=== PATIENT | female | born 1985 | race Two or more races ===

== ENCOUNTER → 2023-12-25 | Outpatient (CLI) | payer BC, SELFPAY ==
--- NOTE | 2023-12-25 16:40 | XR_ITS ---
Examination: Foot, right, 3 views Technique: AP, oblique, lateral views foot, 3 views Date and time of exam: December 25, 2023 1740 hours INDICATIONS: Right foot pain beginning 3 days ago FINDINGS: Moderate osteopenia Mild to moderate narrowing first metatarsophalangeal joint Mild narrowing first tarsometatarsal joint No fracture No cortical bone destruction 4 mm plantar 5 mm posterior bony calcaneal spurs IMPRESSION: Mild to moderate osteoarthritis first metatarsophalangeal joint Mild osteoarthritis first tarsometatarsal joint Plantar posterior bony calcaneal spurs
[2023-12-25 18:48] LABS: RA Screen Negative (Negative)
[2023-12-31 06:47] LABS: ANA Screen, IFA NEGATIVE (NEGATIVE)
== END | disposition home or self-care (01) ==
LOC: CDIM 16:26 → COPL 17:06
PROVIDERS: Referring Provider Registered Nurse; Visit Provider Radiology Diagnostic Radiology
DX: M19.071 Primary osteoarthritis, right ankle and foot (principal); M77.31 Calcaneal spur, right foot; M79.671 Pain in right foot
CPT/HCPCS: 36415; 73630; 84550; 86038; 86430

== ENCOUNTER → 2024-02-08 | Outpatient (CLI) | payer BC, SELFPAY | END | disposition home or self-care (01) | LOC: CDIM 13:23 | PROVIDERS: PCP Family Medicine; Referring Provider Obstetrics & Gynecology Obstetrics; Visit Provider Obstetrics & Gynecology Obstetrics | DX: Z53.8 Procedure and treatment not carried out for other reasons (principal) ==

== ENCOUNTER → 2024-04-14 | Outpatient (CLI) | payer OTHER, SELFPAY ==
[2024-04-14 11:56] LABS: Beta HCG,Quantitative < 1 mIU/mL (<5.0)
== END | disposition home or self-care (01) ==
PROVIDERS: PCP Registered Nurse; Referring Provider Obstetrics & Gynecology Obstetrics; Visit Provider Obstetrics & Gynecology Obstetrics
DX: O02.81 Inappropriate change in quantitative human chorionic gonadotropin (hCG) in early pregnancy (principal)
CPT/HCPCS: 36415; 84702

== ENCOUNTER → 2024-04-23 | Outpatient (CLI) | payer BC, SELFPAY ==
--- NOTE | 2024-04-23 07:04 | XR_ITS ---
Examination: Transvaginal ultrasound of the pelvis, complete Technique: Transvaginal sonographic images pelvis performed using poe scale imaging Exam date and time: April 23, 2024 0717 hrs. Indications: Patient voided through IVF. Findings: Uterus 7.5 x 4.2 x 4.3 cm Endometrial stripe 0.4 cm Multiple small calcifications throughout the uterus and endometrium, the largest 4 mm Right ovary 2.4 x 1.7 x 2.1 cm arterial flow, 10 follicles, the largest 6 mm,, 5 mm, 5 mm, 6 mm, 5 mm, 5 mm, 5 mm, 3 mm, 3 mm Left ovary 2.1 x 1.9 x 1.8 cm arterial flow, 13 follicles, the largest 9 mm, 5 mm, 4 mm, 3 mm, 5 mm, 4 mm, 3 mm, 4 mm, 7 mm, 5 mm, 4 mm, 2 mm, 3 mm Impression: Pelvic sonogram
[2024-05-05 07:01] LABS: Progesterone,LC/MS* 1.7 ng/mL; Prolactin* 10.1 ng/mL
== END | disposition home or self-care (01) ==
LOC: CDIM 06:45 → COPL 07:39
PROVIDERS: PCP Registered Nurse; Referring Provider Obstetrics & Gynecology Obstetrics; Visit Provider Obstetrics & Gynecology Obstetrics
DX: Z31.41 Encounter for fertility testing (principal)
CPT/HCPCS: 36415; 76830; 84144; 84146

== ENCOUNTER → 2024-04-29 | Outpatient (CLI) | payer BC, SELFPAY ==
[2024-04-29 17:06] LABS: Free T4 (Free Thyroxine) 1.15 ng/dL (0.89-1.76); Thyroid Stimulating Hormone 3.97 uIU/mL (0.55-4.78)
== END | disposition home or self-care (01) ==
LOC: COPL 15:30
PROVIDERS: PCP Family Medicine; Referring Provider Obstetrics & Gynecology Obstetrics; Visit Provider Obstetrics & Gynecology Obstetrics
DX: Z31.41 Encounter for fertility testing (principal); R94.6 Abnormal results of thyroid function studies
CPT/HCPCS: 36415; 84439; 84443

== ENCOUNTER → 2024-04-30 | Outpatient (CLI) | payer BC, SELFPAY ==
--- NOTE | 2024-04-30 15:30 | XR_ITS ---
Examination: Transvaginal ultrasound of the pelvis, complete Technique: Transvaginal sonographic images pelvis performed using poe scale imaging Exam date and time: April 30, 2024 at 1608 hours Comparison April 23, 2024 INDICATIONS: Patient is going through in vitro fertilization FINDINGS: Uterus 7.5 cm endometrial stripe 0.3 cm Small uterine calcifications No intrauterine gestation Right ovary 1.7 cm arterial flow small follicles Left ovary 2.0 cm marker for small follicles IMPRESSION: No uterine mass Endometrial stripe 0.3 cm.
== END | disposition home or self-care (01) ==
LOC: CDIM 15:22
PROVIDERS: PCP Family Medicine; Referring Provider Obstetrics & Gynecology Obstetrics; Visit Provider Obstetrics & Gynecology Obstetrics
DX: Z31.41 Encounter for fertility testing (principal)
CPT/HCPCS: 76830

== ENCOUNTER → 2024-05-06 | Outpatient (CLI) | payer BC, SELFPAY ==
[2024-05-06 11:54] LABS: Beta HCG,Quantitative 1 mIU/mL (<5.0)
[2024-05-23 06:54] LABS: Estradiol, Ultrasensitive* 384 pg/mL; Progesterone,LC/MS* <0.1 ng/mL
== END | disposition home or self-care (01) ==
LOC: COPL 09:59
PROVIDERS: PCP Family Medicine; Referring Provider Obstetrics & Gynecology Obstetrics; Visit Provider Obstetrics & Gynecology Obstetrics
DX: Z31.41 Encounter for fertility testing (principal)
CPT/HCPCS: 36415; 82670; 84144; 84702

== ENCOUNTER → 2024-05-07 | Outpatient (CLI) | payer BC, SELFPAY ==
--- NOTE | 2024-05-07 | XR_ITS ---
Examination: Transvaginal ultrasound of the pelvis, complete Technique: Transvaginal sonographic images pelvis performed using poe scale imaging Exam date and time: May 07, 2024 0719 hours INDICATIONS: In vitro fertilization, endometrial stripe 0.3 cm on transvaginal pelvic sonogram April 30, 2024 FINDINGS: Uterus 8.2 cm endometrial stripe 0.46 cm No uterine mass or intrauterine gestation Right ovary 2.1 cm arterial flow Left ovary 1.8 cm arterial flow. IMPRESSION: Uterine endometrial stripe 0.46 cm
== END | disposition home or self-care (01) ==
LOC: CDIM 06:53
PROVIDERS: PCP Registered Nurse; Referring Provider Obstetrics & Gynecology Obstetrics; Visit Provider Obstetrics & Gynecology Obstetrics
DX: Z31.41 Encounter for fertility testing (principal)
CPT/HCPCS: 76830

== ENCOUNTER → 2024-06-02 | Outpatient (CLI) | payer BC, SELFPAY ==
[2024-06-02 12:14] LABS: Free T4 (Free Thyroxine) 1.24 ng/dL (0.89-1.76); Thyroid Stimulating Hormone 1.62 uIU/mL (0.55-4.78)
== END | disposition home or self-care (01) ==
LOC: COPL 09:53
PROVIDERS: PCP Family Medicine; Referring Provider Obstetrics & Gynecology Obstetrics; Visit Provider Obstetrics & Gynecology Obstetrics
DX: Z31.41 Encounter for fertility testing (principal)
CPT/HCPCS: 36415; 84144; 84439; 84443

== ENCOUNTER → 2024-06-03 | Outpatient (CLI) | payer BC, SELFPAY ==
--- NOTE | 2024-06-03 09:14 | XR_ITS ---
Examination: Transvaginal ultrasound of the pelvis, complete Technique: Transvaginal sonographic images pelvis performed using poe scale imaging Exam date and time: June 03, 2024 0954 hours INDICATIONS: Patient undergoing IVF treatments FINDINGS: Uterus 7.3 cm endometrial stripe 0.4 cm Right ovary 2.2 cm small follicles, the largest 6 x 6 mm Left ovary 1.9 cm arterial flow small follicles, the largest 6 mm IMPRESSION: No uterine mass or intrauterine gestation Small bilateral ovarian follicles.
== END | disposition home or self-care (01) ==
PROVIDERS: PCP Registered Nurse; Referring Provider Obstetrics & Gynecology Obstetrics; Visit Provider Obstetrics & Gynecology Obstetrics
DX: Z31.41 Encounter for fertility testing (principal)
CPT/HCPCS: 76830

== ENCOUNTER → 2024-06-10 | Outpatient (CLI) | payer BC, MEDICAID, SELFPAY ==
--- NOTE | 2024-06-10 | XR_ITS ---
Examination: Transvaginal ultrasound of the pelvis, complete Technique: Transvaginal sonographic images pelvis performed using poe scale imaging Exam date and time: June 10, 2024 0839 hours INDICATIONS: Undergoing IVF treatments FINDINGS: Uterus 7.4 x 3.6 x 4.5 cm Endometrial stripe 0.5 cm Small benign lower uterine segment cervical cysts Right ovary 2.3 cm arterial flow small follicles, the largest 4 mm Left ovary 2.2 cm arterial flow small follicles, the largest 6 mm IMPRESSION: Endometrial stripe 0.5 cm Small bilateral ovarian follicles.
== END | disposition home or self-care (01) ==
LOC: CDIM 07:33
PROVIDERS: PCP Family Medicine; Referring Provider Obstetrics & Gynecology Obstetrics; Visit Provider Obstetrics & Gynecology Obstetrics
DX: Z31.41 Encounter for fertility testing (principal)
CPT/HCPCS: 76830

== ENCOUNTER → 2024-06-16 | Outpatient (CLI) | payer BC, MEDICAID, SELFPAY ==
--- NOTE | 2024-06-16 09:16 | XR_ITS ---
Examination: Transvaginal ultrasound of the pelvis, complete Technique: Transvaginal sonographic images pelvis performed using poe scale imaging Exam date and time June 16, 2024 0939 hours INDICATIONS: Undergoing in vitro fertilization, assess endometrial stripe FINDINGS: Uterus 7.1 cm endometrial stripe 0.7 cm Right ovary 1.9 cm arterial flow small follicles, the largest 6 x 5 mm Left ovary 2.0 cm arterial flow small follicles, the largest 5 x 4 mm IMPRESSION: Endometrial stripe 0.7 cm
== END | disposition home or self-care (01) ==
LOC: CDIM 09:10
PROVIDERS: PCP Family Medicine; Referring Provider Obstetrics & Gynecology Obstetrics; Visit Provider Obstetrics & Gynecology Obstetrics
DX: N97.9 Female infertility, unspecified (principal)
CPT/HCPCS: 76830

== ENCOUNTER → 2024-07-10 | Outpatient (CLI) | payer BC, MEDICAID, SELFPAY | END | disposition home or self-care (01) | LOC: COPL 13:05 | PROVIDERS: PCP Family Medicine; Referring Provider Obstetrics & Gynecology Obstetrics; Visit Provider Obstetrics & Gynecology Obstetrics | DX: Z31.41 Encounter for fertility testing (principal) | CPT/HCPCS: 36415; 84144 ==

== ENCOUNTER → 2024-07-10 | Outpatient (CLI) | payer BC, MEDICAID, SELFPAY ==
--- NOTE | 2024-07-10 | XR_ITS ---
Examination: Transvaginal ultrasound of the pelvis, complete Technique: Transvaginal sonographic images pelvis performed using poe scale imaging Exam date and time: July 10, 2024 1219 hours INDICATIONS: Patient undergoing IVF treatments checking endometrial thickness FINDINGS: Uterus 7.3 cm endometrial stripe 0.5 cm Right ovary 1.9 cm arterial flow 5 subcentimeter follicles Left ovary 2.1 cm arterial flow 9 subcentimeter follicles IMPRESSION: Endometrial stripe 0.5 cm.
== END | disposition home or self-care (01) ==
LOC: CDIM 12:03
PROVIDERS: PCP Registered Nurse; Referring Provider Obstetrics & Gynecology Obstetrics; Visit Provider Obstetrics & Gynecology Obstetrics
DX: N97.9 Female infertility, unspecified (principal)
CPT/HCPCS: 76830

== ENCOUNTER → 2024-07-18 | Outpatient (CLI) | payer BC, MEDICAID, SELFPAY ==
--- NOTE | 2024-07-18 09:22 | XR_ITS ---
Examination: Transvaginal ultrasound of the pelvis, complete Technique: Transvaginal sonographic images pelvis performed using poe scale imaging Exam date and time: July 18, 2024 0937 hours INDICATIONS: Patient undergoing IVF treatments FINDINGS: Uterus 7.6 cm endometrial stripe 0.7 cm right laminar endometrium Right ovary 2.1 cm arterial flow subcentimeter 5 follicles Left ovary 2.1 cm arterial flow can subcentimeter follicles IMPRESSION: Pelvic sonogram as above.
[2024-07-18 10:27] LABS: Glucose Estimated Average 114 mg/dL (80-131); Hemoglobin A1C 5.6 % Hgb (4.8-6.0)
[2024-07-18 10:43] LABS: Alanine Aminotransferase 16 U/L (10-49); Albumin, Serum 4.5 gm/dL (3.5-5.0); Albumin/Globulin Ratio 1.7 (1.2-2.2); Alkaline Phosphatase 90 U/L (46-116); Anion Gap 10 (7-16); Aspartate Amino Transferase 16 U/L (0-34); BUN/Creatinine Ratio 14 Ratio (12-20); Bilirubin,Total 0.3 mg/dL (0.3-1.2); Blood Urea Nitrogen 7 mg/dL (9-23); Calcium 9.8 mg/dL (8.3-10.6); Calcium (Corrected) 9.8 mg/dL (8.5-10.1); Carbon Dioxide 24.9 mMol/L (20.0-31.0); Chloride 102 mMol/L (98-107); Creatinine (Component) 0.5 mg/dL (0.6-1.3); Globulin 2.7 gm/dL (2.3-3.5); Glucose 88 mg/dL (74-106); Osmolality,Calculated 270 (275-295); Potassium 4.1 mMol/L (3.4-5.1); Sodium 137 mMol/L (136-145); Total Protein 7.2 gm/dL (5.7-8.2); eGFR > 60 See Note
== END | disposition home or self-care (01) ==
LOC: CDIM 09:07 → COPL 09:52
PROVIDERS: PCP Family Medicine; Referring Provider Registered Nurse; Visit Provider Obstetrics & Gynecology Obstetrics
DX: E11.65 Type 2 diabetes mellitus with hyperglycemia (principal); N97.9 Female infertility, unspecified
CPT/HCPCS: 36415; 76830; 80053; 83036

== ENCOUNTER → 2024-07-23 | Outpatient (CLI) | payer BC, MEDICAID, SELFPAY ==
--- NOTE | 2024-07-23 08:38 | XR_ITS ---
Examination: Transvaginal ultrasound of the pelvis, complete Technique: Transvaginal sonographic images pelvis performed using poe scale imaging Exam date and time: 2024 0851 hours INDICATIONS: Patient undergoing in vitro fertilization FINDINGS: Uterus 7.5 cm endometrial stripe 0.5 cm, trilaminar endometrium Right ovary 1.7 cm arterial flow, 6 follicles, the largest 8 x 9 mm Left ovary 1.8 cm arterial flow 13 mm follicles the largest 6 mm IMPRESSION: Pelvic sonogram as above.
== END | disposition home or self-care (01) ==
LOC: CDIM 08:32
PROVIDERS: PCP Family Medicine; Referring Provider Obstetrics & Gynecology Obstetrics; Visit Provider Obstetrics & Gynecology Obstetrics
DX: N97.9 Female infertility, unspecified (principal)
CPT/HCPCS: 76830

== ENCOUNTER → 2024-08-18 | Outpatient (CLI) | payer BC, MEDICAID, SELFPAY ==
--- NOTE | 2024-08-18 16:24 | XR_ITS ---
Examination: Transvaginal ultrasound of the pelvis, complete Technique: Transvaginal sonographic images pelvis performed using poe scale imaging Exam date and time: August 28 70,025, 1646 hours INDICATIONS: Patient undergoing in vitro fertilization treatment FINDINGS: Uterus 7.4 cm, trilaminar endometrium, 0.8 cm Right ovary 1.8 cm arterial flow, small follicles, including 7 mm Left ovary 2.3 cm arterial flow, multiple follicles at least 10, the largest 5 mm IMPRESSION: Uterus 7.4 cm trilaminar endometrium.
== END | disposition home or self-care (01) ==
PROVIDERS: PCP Registered Nurse; Referring Provider Obstetrics & Gynecology Obstetrics; Visit Provider Obstetrics & Gynecology Obstetrics
DX: Z31.41 Encounter for fertility testing (principal)
CPT/HCPCS: 76830

== ENCOUNTER → 2024-09-16 | Outpatient (CLI) | payer BC, MEDICAID, SELFPAY ==
--- NOTE | 2024-09-16 15:32 | XR_ITS ---
Examination: Transvaginal ultrasound of the pelvis, complete Technique: Transvaginal sonographic images pelvis performed using poe scale imaging Exam date and time: September 16, 2024 1606 hours INDICATIONS: Encounter for fertility testing. FINDINGS: Uterus 6.2 x 3.8 x 4.3 cm Endometrial stripe 6 mm Right ovary 2.4 cm arterial flow, 10 follicles, the largest 8 x 5 x 6 mm Left ovary 2.3 cm arterial flow 11 follicles, the largest 7 x 4 x 6 mm IMPRESSION: Pelvic sonography as above
== END | disposition home or self-care (01) ==
LOC: CDIM 15:23
PROVIDERS: Referring Provider Obstetrics & Gynecology Obstetrics; Visit Provider Obstetrics & Gynecology Obstetrics
DX: Z31.41 Encounter for fertility testing (principal)
CPT/HCPCS: 76830

== ENCOUNTER → 2024-09-24 | Outpatient (CLI) | payer BC, MEDICAID, SELFPAY ==
--- NOTE | 2024-09-24 13:10 | XR_ITS ---
Examination: Transvaginal ultrasound of the pelvis, complete Technique: Transvaginal sonographic images pelvis performed using poe scale imaging Exam date and time: September 24, 2024 1331 hours INDICATIONS: Patient receiving IVF treatments FINDINGS: Uterus 7.5 cm trilaminar endometrium 0.7 cm Right ovary 2.1 cm arterial flow 12 follicles, the largest 5 x 6 mm, 10 x 9 mm pedunculated cyst Left ovary 1.9 cm arterial flow 9 follicles, the largest 5 x 4 mm, pedunculated cyst 8 x 7 mm No fluid in the cul-de-sac IMPRESSION: Pelvic sonogram as above.
== END | disposition home or self-care (01) ==
LOC: CDIM 12:49
PROVIDERS: PCP Registered Nurse; Referring Provider Obstetrics & Gynecology Obstetrics; Visit Provider Obstetrics & Gynecology Obstetrics
DX: Z31.41 Encounter for fertility testing (principal)
CPT/HCPCS: 76830

== ENCOUNTER → 2024-10-10 | Outpatient (CLI) | payer BC, MEDICAID, SELFPAY ==
[2024-10-10 09:04] LABS: Beta HCG,Quantitative < 1 mIU/mL (<5.0)
== END | disposition home or self-care (01) ==
LOC: COPL 07:10
PROVIDERS: PCP Family Medicine; Referring Provider Obstetrics & Gynecology Obstetrics; Visit Provider Obstetrics & Gynecology Obstetrics
DX: Z32.00 Encounter for pregnancy test, result unknown (principal)
CPT/HCPCS: 36415; 84702

== ENCOUNTER → 2024-10-14 | Outpatient (CLI) | payer BC, MEDICAID, SELFPAY ==
[2024-10-14 08:45] LABS: Beta HCG,Quantitative 40 mIU/mL (<5.0)
== END | disposition home or self-care (01) ==
LOC: COPL 07:17
PROVIDERS: PCP Family Medicine; Referring Provider Obstetrics & Gynecology Obstetrics; Visit Provider Obstetrics & Gynecology Obstetrics
DX: Z32.00 Encounter for pregnancy test, result unknown (principal)
CPT/HCPCS: 36415; 84702

== ENCOUNTER → 2024-10-16 | Outpatient (CLI) | payer BC, MEDICAID, SELFPAY ==
[2024-10-16 16:47] LABS: Beta HCG,Quantitative 60 mIU/mL (<5.0)
== END | disposition home or self-care (01) ==
LOC: COPL 15:25
PROVIDERS: PCP Family Medicine; Referring Provider Obstetrics & Gynecology Obstetrics; Visit Provider Obstetrics & Gynecology Obstetrics
DX: O02.81 Inappropriate change in quantitative human chorionic gonadotropin (hCG) in early pregnancy (principal)
CPT/HCPCS: 36415; 84702

== ENCOUNTER → 2024-10-20 | Outpatient (CLI) | payer BC, MEDICAID, SELFPAY ==
[2024-10-20 10:48] LABS: Beta HCG,Quantitative 448 mIU/mL (<5.0)
== END | disposition home or self-care (01) ==
LOC: COPL 10:03
PROVIDERS: PCP Family Medicine; Referring Provider Obstetrics & Gynecology Obstetrics; Visit Provider Obstetrics & Gynecology Obstetrics
DX: Z31.41 Encounter for fertility testing (principal)
CPT/HCPCS: 36415; 84702

== ENCOUNTER → 2024-10-22 | Outpatient (CLI) | payer BC, MEDICAID, SELFPAY ==
[2024-10-22 08:51] LABS: Beta HCG,Quantitative 952 mIU/mL (<5.0)
== END | disposition home or self-care (01) ==
LOC: COPL 07:44
PROVIDERS: PCP Registered Nurse; Referring Provider Obstetrics & Gynecology Obstetrics; Visit Provider Obstetrics & Gynecology Obstetrics
DX: Z31.41 Encounter for fertility testing (principal)
CPT/HCPCS: 36415; 84702

== ENCOUNTER 2024-10-29 15:40 | Emergency (ER) | payer BC, MEDICAID, SELFPAY ==
[2024-10-29 15:54] VITALS: BP 177/99; PULSE 90; RESP 18; TEMP 37.4; O2SAT 99; BMI 36.9
--- NOTE | 2024-10-29 15:59 | XR_ITS ---
Examination: OB Transvaginal ultrasound of the pelvis, complete Technique: Transvaginal sonographic images pelvis performed using poe scale imaging Exam date and time: October 29, 2024 1623 hrs. Indications: Onset vaginal bleeding beginning today. Findings: Uterus 7.4 cm, intrauterine gestational sac 1.0 cm corresponds to 5 weeks 5 day gestational age No pole, no cardiac activity, no subchorionic hemorrhage Right ovary 2.1 cm arterial flow. Left ovary 1.7 cm arterial flow Impression: Empty intrauterine gestational sac corresponding to 5 weeks 5 day gestational age, no pole, no cardiac activity Recommend short-term follow-up transvaginal pelvic sonography to confirm viability
--- NOTE | 2024-10-29 16:00 | PD.EDRME ---
Rapid Medical Screening Exam RME Arrival date/time: 10/29/24 15:40 39-year-old female G1, reports conceiving through IVF presents with concerns for vaginal bleeding which began today Chief Complaint: Vaginal Bleeding Vital signs: Vital Signs Temperature 99.3 F 10/29/24 15:54 Pulse Rate 90 10/29/24 15:54 Respiratory Rate 18 10/29/24 15:54 Blood Pressure 177/99 H 10/29/24 15:54 Pulse Oximetry (%) 99 10/29/24 15:54 Oxygen Delivery Method Room Air 10/29/24 15:54
[2024-10-29 16:19] LABS: Basophils # (Auto) 0.1 Thou/mm3 (0.0-0.2); Basophils % (Auto) 1 % (0-2.5); Eosinophils # (Auto) 0.4 Thou/mm3 (0.0-0.5); Eosinophils % (Auto) 2 % (0-10); Hematocrit 36.8 % (36.0-46.0); Hemoglobin 12.4 g/dL (12.0-16.0); Immature Granulocytes Auto 0.04 Thou/mm3 (0.00-0.00); Lymphocytes # (Auto) 3.1 Thou/mm3 (1.0-4.8); Lymphocytes % (Auto) 21 % (10-50); Mean Corpuscular HGB Conc 33.7 g/dl (31.0-37.0); Mean Corpuscular Hemoglobin 29.9 pg (25.0-35.0); Mean Corpuscular Volume 89 fL (80-100); Monocytes # (Auto) 0.9 Thou/mm3 (0.0-0.8); Monocytes % (Auto) 6 % (0-12); Neutrophils # (Auto) 10.5 Thou/mm3 (1.8-7.7); Neutrophils % (Auto) 70 % (37-80); Nucleated Red Blood Cell # 0.00 Thou/mm3 (0.00-0.00); Nucleated Red Blood Cell % 0 /100 WBC (0); Platelet Count 341 Thou/mm3 (140-440); RDW Standard Deviation 41.9 fL (36.4-46.3); Red Blood Count 4.15 Miln/mm3 (4.00-5.20); White Blood Count 15.0 Thou/mm3 (3.6-11.0)
[2024-10-29 16:38] LABS: Alanine Aminotransferase 17 U/L (10-49); Albumin, Serum 4.3 gm/dL (3.5-5.0); Albumin/Globulin Ratio 1.5 (1.2-2.2); Alkaline Phosphatase 72 U/L (46-116); Anion Gap 11 (7-16); Aspartate Amino Transferase 24 U/L (0-34); BUN/Creatinine Ratio 8 Ratio (12-20); Bilirubin,Total 0.2 mg/dL (0.3-1.2); Blood Urea Nitrogen 5 mg/dL (9-23); Calcium 9.9 mg/dL (8.3-10.6); Calcium (Corrected) 9.9 mg/dL (8.5-10.1); Carbon Dioxide 22.3 mMol/L (20.0-31.0); Chloride 105 mMol/L (98-107); Creatinine (Component) 0.6 mg/dL (0.6-1.3); Estimated Creatinine Clearance 149.5 mL/min (>60); Globulin 2.9 gm/dL (2.3-3.5); Glucose 90 mg/dL (74-106); Osmolality,Calculated 272 (275-295); Potassium 4.1 mMol/L (3.4-5.1); Sodium 138 mMol/L (136-145); Total Protein 7.2 gm/dL (5.7-8.2); eGFR > 60 See Note
[2024-10-29 17:10] LABS: Beta HCG,Quantitative 9761 mIU/mL (<5.0)
--- NOTE | 2024-10-29 18:31 | PD.EDVAGBL ---
ED OB Contraction Preg RMI/HPI General Chief complaint: Vaginal Bleeding Stated complaint: VAGINAL BLEED, APPROX 6 WEEKS PREG Time Seen by Provider: 10/29/24 17:43 Arrival date/time: 10/29/24 15:40 RME / HPI RME / HPI Narrative: 39-year-old female G1, reports conceiving through IVF presents with concerns for vaginal bleeding which began today severity of symptoms mild. Patient only changes 1 pad not totally soaked. Currently there is no bleeding. Patient also denies any pelvic pain. Patient been monitoring her hCG per advice from her FINANCIAL SALES ASSISTANT from [place] who did IVF. 7 days ago it was only 900 + Related Data Home Medications ?Medication ?Instructions ?Recorded ?Confirmed folic acid 1 mg tablet 1 mg PO QDAY 08/08/21 08/09/21 Previous Rx's ?Medication ?Instructions ?Recorded IBU 800 mg tablet (ibuprofen) 800 mg PO Q6H #30 tabs 12/18/21 Allergies Allergy/AdvReac Type Severity Reaction Status Date / Time lisinopril Allergy Cough Verified 12/18/21 16:14 Review of Systems Review of Systems Narrative Review of Systems: Review of system reviewed and within normal limits except mentioned in HPI ED Exam Narrative Physical exam: VITAL SIGNS: Reviewed. GENERAL APPEARANCE: Alert and interactive, follows commands, no acute distress, HEAD AND FACE: Non-traumatic. ENT: PERRL, pink conjunctivitis, eyelid no trauma, Mucous membrane moist. NECK: Supple, nontender, no nuchal rigidity. CHEST: No tenderness, no crepitus, no paradoxical movement, no retractions. LUNGS: Clear, well ventilated, symmetric, no rales, no wheezing, no ronchi, no stridor, good breath sounds bilaterally. HEART: Regular rate, regular rhythm, no murmur, no gallops. ABDOMEN: Soft, positive bowel sounds, nondistended, no guarding, nontender, no rebound, no masses, RECTAL: Deferred. GENITAL: Deferred. NEUROLOGICAL: Gross motor function intact sensory function intact, Appropriate for age. MUSCULOSKELETAL: low back nontender, full range of motion. EXTREMITIES: Nontender, full range of motion. SKIN: Color pink, dry, no rash, no lacerations, no abrasions, no contusions. LYMPHATICS: Deferred. Course Quality Measures none Orders Category Date Time Status US OB transvaginal Stat Exams 10/29/24 15:59 Completed ABO/RH Type Stat Lab 10/29/24 16:08 Completed Beta HCG,Quantitative Stat Lab 10/29/24 16:08 Completed CBC Stat Lab 10/29/24 16:08 Completed Comprehensive Metabolic Panel Stat Lab 10/29/24 16:08 Completed UA, C/S IF [Urinalysis, C/S if Indicated] Stat Lab 10/29/24 18:49 Completed Vital Signs Vital signs: Vital Signs Temperature 99.3 F 10/29/24 15:54 Pulse Rate 90 10/29/24 15:54 Respiratory Rate 18 10/29/24 15:54 Blood Pressure 177/99 H 10/29/24 15:54 Pulse Oximetry (%) 99 10/29/24 15:54 Oxygen Delivery Method Room Air 10/29/24 15:54 Vaginal Bleeding MDM Narrative MDM Narrative: 39-year-old female G1, reports conceiving through IVF presents with concerns for vaginal bleeding which began today severity of symptoms mild. Patient only changes 1 pad not totally soaked. Currently there is no bleeding. Patient also denies any pelvic pain. Patient been monitoring her hCG per advice from her FINANCIAL SALES ASSISTANT from [place] who did IVF. 7 days ago it was only 900 + Urinalysis negative for UTI. Ultrasound of showed intrauterine gestational sac no pole noted at this time. Could be too early . Patient was advised to do pelvic rest for 1 week until cleared by FINANCIAL SALES ASSISTANT. Patient told me that there is no recurrence of vaginal spotting or bleeding in the emergency room. She is stable for discharge home. Patient data External records reviewed:: None Clinical information provided by:: patient Social determinants that could affect healthcare access:: none Patient has the following chronic illnesses:: None How is presenting disease/condition affected by chronic disease/condition?: no chronic disease Evaluation data The following diagnostics were reviewed and interpreted by me:: lab results and radiology exam(s) Lab and/or radiology exams considered but not ordered:: None Interpretation Summary: See results MDM Medications / Prescriptions Medications or Prescriptions considered but not ordered:: None Medication administrations:: None Consultations Consultation(s) initiated? (list below): No Diagnosis Vaginal Bleeding Differential Diagnosis: threatened , incomplete and vaginal bleeding Most likely diagnosis given after review of the tests above:: Vagina spotting, Admission Indicated Admission indicated?: not indicated Admission Request Was there a request for admission?: No Disposition Plan Disposition Plan: Discharge Discharge Attestation Discharge Attestation: The patient and all family members were given an opportunity to ask questions and understood the discharge instructions. Discharge instructions specifically effects, indications for sooner follow up or return to the emergency department, and the expected course of current diagnosis. Patient condition: Stable Discharge Plan Plan Patient Disposition: HOME (Self Care) Discharge Disposition comment: stable Prescriptions/Referrals Prescriptions/Med Rec: No Action folic acid 1 mg Tablet 1 mg PO QDAY ibuprofen [IBU] 800 mg tablet 800 mg PO Q6H Qty: 30 0RF Referrals: No Primary/Family,Physician [Primary Care Provider] - In 1 week Problem List Clinical Impression: Vaginal spotting, Patient/Caregiver Discharge Instructions Education Materials: Your First Trimester ... Additional Instructions: Thank you for the opportunity for serving you today. You are stable for discharged . You are advised to: Follow-up with your PCP in 1 to 2 days Return to ED for worsening of symptoms Increase oral fluids Pelvic rest no sex for 1 week or until cleared by your FINANCIAL SALES ASSISTANT Print Language: Guatemalan Stand Alone Forms: Leanna Award Info., Work/School Release, Patient Portal Info Letter VELASQUEZ/NORMA Supervising Physician VELASQUEZ/NORMA Supervising Physician: MD Pollo
[2024-10-29 19:26] LABS: Collection Type, Urine Clean Catch
[2024-10-29 19:27] VITALS: BP 147/85; PULSE 81; RESP 16; TEMP 37.2; O2SAT 99
[2024-10-29 19:33] LABS: Bilirubin,Urine Negative (Negative); Blood,Urine 2+ (Negative); Clarity,Urine Clear (Clear/Hazy); Color,Urine Yellow (Lt Yel-Yel); Culture Indicated,Urine Not Indicated; Glucose, Urine Negative (Negative); Hyaline Casts,Urine < 1 /hpf (0-1); Ketones,Urine 1+ (Negative); Leukocyte Esterase,Urine Negative (Negative); Nitrite,Urine Negative (Negative); PH,Urine 6.0 (5.0-7.0); Protein,Urine Trace (Neg - Trace); RBC,Urine 196 /hpf (0-3); Specific Gravity,Urine 1.027 (1.001-1.035); Squamous Epithelial Cell,Urine 1 /hpf (0-5); Urobilinogen,Urine Negative mg/dL (0.0-1.0); WBC,Urine 1 /hpf (0-5)
[2024-10-29 20:05] VITALS: BP 140/85; PULSE 75; RESP 14; TEMP 37; O2SAT 99
== END 2024-10-29 20:05 | disposition home or self-care (01) ==
PROVIDERS: Nurse Practitioner Family; Nurse Practitioner Primary Care; Emergency Provider Emergency Medicine
DX: O26.851 Spotting complicating pregnancy, first trimester (principal); Z3A.01 Less than 8 weeks gestation of pregnancy
CPT/HCPCS: 36415; 76817; 80053; 81001; 84702; 85025; 86900; 86901; 99283

== ENCOUNTER → 2024-11-10 | Outpatient (CLI) | payer BC, MEDICAID, SELFPAY ==
--- NOTE | 2024-11-10 08:24 | XR_ITS ---
Examination: OB Transvaginal ultrasound of the pelvis, complete Technique: Transvaginal sonographic images pelvis performed using poe scale imaging Exam date and time: November 10, 2024, 0839 hours INDICATIONS: Supervision of other poor reproductive patient, IVF FINDINGS: Uterus 8.6 cm, intrauterine gestational sac 1.8 cm correspondences 6 weeks 5 day gestational age No pole, no cardiac activity Subchorionic hemorrhage 14 x 7 x 11 mm Right ovary 2.2 cm arterial flow Left ovary 1.8 cm arterial flow IMPRESSION: Empty intrauterine gestational sac corresponding to 6 weeks 5 day gestational age Recommend short-term follow-up to exclude embryonic demise.
== END | disposition home or self-care (01) ==
LOC: CDIM 08:19
PROVIDERS: PCP Family Medicine; Referring Provider Obstetrics & Gynecology Obstetrics; Visit Provider Obstetrics & Gynecology Obstetrics
DX: N97.9 Female infertility, unspecified (principal); O09.291 Supervision of pregnancy with other poor reproductive or obstetric history, first trimester; Z31.41 Encounter for fertility testing
CPT/HCPCS: 76817

== ENCOUNTER → 2024-11-14 | Outpatient (CLI) | payer BC, MEDICAID, SELFPAY ==
--- NOTE | 2024-11-14 08:55 | XR_ITS ---
Examination: OB Transvaginal ultrasound of the pelvis, complete Technique: Transvaginal sonographic images pelvis performed using poe scale imaging Exam date and time: November 14, 2024, 0909 hours INDICATIONS: Supervision of otherwise poor reproductive patient, empty intrauterine gestational sac corresponding to 6 weeks 5 day gestational age on ultrasound 11/10/2024. FINDINGS: Uterus 9.0 cm, intrauterine gestational sac 2.0 cm corresponds to 6 week 6 day gestational age. No pole, no cardiac activity 18 x 5 x 17 mm subarachnoid hemorrhage Right ovary 2.4 cm arterial flow Left ovary 2.0 cm arterial flow IMPRESSION: Empty intrauterine gestational sac corresponding to 6 week 6 day gestational age, recommend continued short-term follow-up transvaginal pelvic sonography to exclude embryonic demise
== END | disposition home or self-care (01) ==
PROVIDERS: PCP Registered Nurse; Referring Provider Obstetrics & Gynecology Obstetrics; Visit Provider Obstetrics & Gynecology Obstetrics
DX: O09.291 Supervision of pregnancy with other poor reproductive or obstetric history, first trimester (principal); Z3A.01 Less than 8 weeks gestation of pregnancy
CPT/HCPCS: 76817

== ENCOUNTER → 2024-11-20 | Outpatient (CLI) | payer BC, MEDICAID, SELFPAY ==
[2024-11-20 12:02] LABS: Beta HCG,Quantitative 30064 mIU/mL (<5.0)
== END | disposition home or self-care (01) ==
LOC: COPL 09:46
PROVIDERS: PCP Registered Nurse; Referring Provider Obstetrics & Gynecology Obstetrics; Visit Provider Obstetrics & Gynecology Obstetrics
DX: O02.81 Inappropriate change in quantitative human chorionic gonadotropin (hCG) in early pregnancy (principal); Z32.00 Encounter for pregnancy test, result unknown
CPT/HCPCS: 36415; 84702

== ENCOUNTER → 2024-12-02 | Outpatient (CLI) | payer BC, MEDICAID, SELFPAY ==
[2024-12-02 16:48] LABS: Glucose Estimated Average 114 mg/dL (80-131); Hemoglobin A1C 5.6 % Hgb (4.8-6.0)
[2024-12-02 16:51] LABS: Free T4 (Free Thyroxine) 1.23 ng/dL (0.89-1.76); Thyroid Stimulating Hormone 2.07 uIU/mL (0.55-4.78)
== END | disposition home or self-care (01) ==
LOC: COPL 14:55
PROVIDERS: PCP Registered Nurse; Referring Provider Registered Nurse; Visit Provider Registered Nurse
DX: E03.9 Hypothyroidism, unspecified (principal); E11.65 Type 2 diabetes mellitus with hyperglycemia
CPT/HCPCS: 36415; 83036; 84439; 84443

== ENCOUNTER → 2025-01-13 | Outpatient (CLI) | payer BC, MEDICAID, SELFPAY ==
[2025-01-13 16:08] LABS: Beta HCG,Quantitative 2 mIU/mL (<5.0)
== END | disposition home or self-care (01) ==
LOC: COPL 14:58
PROVIDERS: PCP Registered Nurse; Referring Provider Obstetrics & Gynecology Obstetrics; Visit Provider Obstetrics & Gynecology Obstetrics
DX: O02.81 Inappropriate change in quantitative human chorionic gonadotropin (hCG) in early pregnancy (principal); Z32.00 Encounter for pregnancy test, result unknown
CPT/HCPCS: 36415; 84702

== ENCOUNTER → 2025-02-11 | Outpatient (CLI) | payer BC, MEDICAID, SELFPAY ==
--- NOTE | 2025-02-11 11:44 | XR_ITS ---
Study: Head CT. INDICATION: Generalized head pain for 1 week. TECHNIQUE: 5 mm slice thickness without contrast. 5 mm sagittal and coronal reformats. 3D surface reconstruction of the head with rotating presentation. FINDINGS: The lateral ventricles are normal in size and contour. There is no midline shift, intracranial bleed, mass, cortical edema or parenchymal calcification. The white-poe junctions are clearly seen. There is no focal lesion of the brainstem or cerebellum. The scalp, skull, sinuses and mastoid air cells are normal. The sella turcica volume and its contents are normal. IMPRESSION: No acute diagnostic abnormality.
== END | disposition home or self-care (01) ==
LOC: SCAT 11:37
PROVIDERS: PCP Registered Nurse; Referring Provider Physician Assistant Medical; Visit Provider Physician Assistant Medical
DX: G44.53 Primary thunderclap headache (principal)
CPT/HCPCS: 70450